=== PATIENT | male | born 1975 | race African-American/Black ===

== ENCOUNTER 2018-07-13 09:42 | Emergency (ER) | payer OTHER ==
[2018-07-13 09:49] VITALS: BP 129/73; PULSE 68; TEMP 97.9; BMI 27.1
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
== END 2018-07-13 10:43 | disposition home or self-care (01) ==
LOC: JERFT 09:42
DX: S13.4XXA Sprain of ligaments of cervical spine, initial encounter (principal); V43.52XA Car driver injured in collision with other type car in traffic accident, initial encounter; Y92.89 Other specified places as the place of occurrence of the external cause
CPT/HCPCS: 99281-25

== ENCOUNTER 2020-06-01 13:06 | Emergency (ER) | payer SELFPAY | END 2020-06-01 15:31 | disposition home or self-care (01) | LOC: JVIRT 13:06 | DX: Z11.59 Encounter for screening for other viral diseases (principal) | CPT/HCPCS: C9803; G2012-GT; U0003 ==